=== PATIENT | male | born 1965 | race Caucasian/White ===

== ENCOUNTER → 2017-06-25 | Outpatient (CLI) | payer BC ==
[~2017-06-25] MED LIST: ASPCH81
[2017-06-25 18:25] LABS: CHOLESTEROL/HDL RATIO 3.8
== END | disposition home or self-care (01) ==
LOC: C.LABMFLN 13:19
PROVIDERS: ATTEND Family Medicine
DX: R35.0 Frequency of micturition (principal); E78.5 Hyperlipidemia, unspecified